=== PATIENT | male | born 1995 | race American Indian/Alaskan Native ===

== ENCOUNTER 2019-01-20 10:44 | Emergency (ER) | payer MEDICAID, OTHER ==
--- NOTE | 2019-01-20 11:59 | EDM.PDOC ---
ED HPI GENERAL MEDICAL PROBLEM - General Chief Complaint: Upper Extremity Injury/Pain Stated Complaint: L ARM NUMB Time Seen by Provider: 01/20/19 11:24 Source of Information: Reports: Patient, Family History Limitations: Reports: No Limitations - History of Present Illness INITIAL COMMENTS - FREE TEXT/NARRATIVE: 23 y.o.w.m came with a friend to the ed due to numbness at his right arm. As per SO,pt was drinking last night, was wrestling pt passed out at one time. HPI was given by the Pt's SO because the Pt himself did not remember what appended last night . Now, pt is ambulating fine. His only complaint is discomfort at his right lat neck with movement and numbness at his right lateral arm. No other acute med issues BP 122/63 RR 18 Pulse ox 98% on RA Pulse 67 Temp 36.6 Onset Date: 01/19/19 Onset Time: 22:00 Duration: Hour(s): Location: Reports: Upper Extremity, Right Quality: Reports: Dull Severity: Mild Improves with: Reports: None Worsens with: Reports: None Context: Reports: Other (does not remmember) Associated Symptoms: Reports: No Other Symptoms - Related Data Allergies Allergy/AdvReac Type Severity Reaction Status Date / Time amoxicillin Allergy Hives Verified 01/20/19 11:22 Penicillins Allergy Hives Verified 01/20/19 11:22 Home Meds: Home Meds NK [No Known Home Meds] 11/18/15 [History] Social & Family History - Family History Family Medical History: Noncontributory - Tobacco Use Smoking Status *Q: Current Every Day Smoker Years of Tobacco use: 5 Packs/Tins Daily: 1 Second Hand Smoke Exposure: Yes - Caffeine Use Caffeine Use: Reports: Coffee - Alcohol Use Days Per Week of Alcohol Use: 7 Number of Drinks Per Day: 2 Total Drinks Per Week: 14 - Recreational Drug Use Recreational Drug Use: No Review of Systems - Review of Systems Review Of Systems: See Below Constitutional: Reports: No Symptoms Eyes: Reports: No Symptoms Ears: Reports: No Symptoms Nose: Reports: No Symptoms Mouth/Throat: Reports: No Symptoms Respiratory: Reports: No Symptoms Cardiovascular: Reports: No Symptoms GI/Abdominal: Reports: No Symptoms Genitourinary: Reports: No Symptoms Musculoskeletal: Reports: Muscle Pain (neck) Skin: Reports: No Symptoms Neurological: Reports: No Symptoms Psychiatric: Reports: No Symptoms ED EXAM, GENERAL - Physical Exam Exam: See Below Exam Limited By: No Limitations General Appearance: Alert, WD/WN, Mild Distress Eye Exam: Bilateral Eye: Normal Inspection Ears: Normal External Exam Ear Exam: Bilateral Ear: Auricle Normal Nose: Normal Inspection, Normal Mucosa, No Blood Throat/Mouth: Normal Inspection, Normal Lips, Normal Voice, No Airway Compromise Head: Atraumatic, Normocephalic Neck: Normal Inspection, Supple, Non-Tender, Full Range of Motion Respiratory/Chest: No Respiratory Distress, Lungs Clear, Normal Breath Sounds Cardiovascular: Normal Peripheral Pulses, Regular Rate, Rhythm Peripheral Pulses: 1+: Radial (L) GI/Abdominal: Normal Bowel Sounds, Soft, Non-Tender, No Organomegaly, No Abnormal Bruit, No Mass, Pelvis Stable (Male) Exam: Deferred Rectal (Males) Exam: Deferred Back Exam: Normal Inspection, Full Range of Motion Extremities: Normal Inspection, Normal Range of Motion, Non-Tender, No Pedal Edema, Normal Capillary Refill Neurological: Alert, Oriented, CN II-XII Intact, Normal Cognition, Normal Gait Psychiatric: Normal Affect, Normal Mood Skin Exam: Warm, Dry, Intact Lymphatic: No Adenopathy Course - Vital Signs Text/Narrative:: 23 y.o.w.m came with a friend to the ed due to numbness at his right arm. As per SO,pt was drinking last night, was wrestling pt passed out at one time. HPI was given by the Pt's SO because the Pt himself did not remember what appended last night . Now, pt is ambulating fine. His only complaint is discomfort at his right lat neck with movement and numbness at his right lateral arm. No other acute med issues BP 122/63 RR 18 Pulse ox 98% on RA Pulse 67 Temp 36.6 PE: WNWD W M with right arm numbness and right lat neck discomfort due to wrestling and heavy ETOH use. Imaging: not indicated Impression: Neck discomfort, minor, panesthesia minor right arm Tx: soft neck collar, ICE Reexam: Improved Plan: D/C with instructions Last Recorded V/S: Last Vital Signs Temp 36.8 C 01/20/19 11:24 Pulse 95 01/20/19 12:21 Resp 18 01/20/19 12:21 BP 116/58 L 01/20/19 12:21 Pulse Ox 97 01/20/19 12:21 - Orders/Labs/Meds Orders: Active Orders 24 hr Category Date Time Status Cooling Warming Measures [RC] ASDIRECTED Care 01/20/19 11:54 Ordered Ice Therapy [OM.PC] Routine Oth 01/20/19 11:54 Ordered Departure - Departure Time of Disposition: 11:55 Disposition: Home, Self-Care 01 Condition: Good Clinical Impression: Neuropraxia of right upper extremity - Discharge Information Instructions: Cervical Sprain, [id number] Referrals: PCP,None [Primary Care Provider] - Forms: ED Department Discharge Additional Instructions: Pleas apply Ice to the affected area, soft neck collar as needed, please follow up as needed at clinic if not improving, come back if your symptoms get worse acutely - My Orders Last 24 Hours: My Active Orders 01/20/19 11:54 Cooling Warming Measures [RC] ASDIRECTED Ice Therapy [OM.PC] Routine - Assessment/Plan Last 24 Hours: My Active Orders 01/20/19 11:54 Cooling Warming Measures [RC] ASDIRECTED Ice Therapy [OM.PC] Routine
[2019-01-20 14:56] VITALS: BP 116/58
== END 2019-01-20 12:34 | disposition home or self-care (01) ==
LOC: FB.ED 10:44
DX: S54.91XA Injury of unspecified nerve at forearm level, right arm, initial encounter (principal); Z88.1 Allergy status to other antibiotic agents; Z88.0 Allergy status to penicillin; F17.210 Nicotine dependence, cigarettes, uncomplicated; X58.XXXA Exposure to other specified factors, initial encounter; Y93.72 Activity, wrestling
CPT/HCPCS: 99283